=== PATIENT | male | born 1990 | race African-American/Black ===

== ENCOUNTER → 2024-03-23 | Outpatient (CLI) | payer OTHER ==
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
== END | disposition home or self-care (01) ==
LOC: RADCTMAIN 10:18
PROVIDERS: ATTEND Family Medicine
DX: M77.8 Other enthesopathies, not elsewhere classified (principal)

== ENCOUNTER 2024-04-03 15:36 | Emergency (ER) | payer OTHER ==
[2024-04-03 15:48] VITALS: RESP 18
--- NOTE | 2024-04-03 16:40 | XR ---
EXAMINATION TYPE: XR ankle complete RT DATE OF EXAM: 04/03/2024 4:24 PM CLINICAL INDICATION:Male, 33 years old with history of pain; COMPARISON: None TECHNIQUE: XR ankle complete RT; ankle is imaged in frontal, lateral and oblique projections. FINDINGS: There is no evidence of acute osseous pathology. No evidence of subluxation or dislocation. Kager's fat pad is intact. Mild soft tissue swelling around the ankle. No radiopaque foreign bodies are ident ified. IMPRESSION: 1. No evidence of acute fracture. 2. Subcutaneous swelling around the ankle likely secondary to underlying soft tissue injury.
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
[2024-04-03] MEDS: KETOROLAC 15 MG/ML 1 ML VIAL IM STA (17:42)
[2024-04-03 17:49] VITALS: BP 117/74; PULSE 63; TEMP 97.9
== END 2024-04-03 17:49 | disposition home or self-care (01) ==
LOC: EC 15:36
DX: S93.401A Sprain of unspecified ligament of right ankle, initial encounter (principal); F17.200 Nicotine dependence, unspecified, uncomplicated; V18.0XXA Pedal cycle driver injured in noncollision transport accident in nontraffic accident, initial encounter
CPT/HCPCS: 99283 ×2; 96372 ×2; 73610; J1885